=== PATIENT | female | born 1960 | race African-American/Black ===

== ENCOUNTER 2017-07-06 15:24 | Emergency (ER) | payer MEDICARE, OTHER ==
[2017-07-06] MEDS: ACETAMINOPHEN 325 MG TAB PO (17:52)
[2017-07-06 17:57] LABS: URINE BLOOD (Dip) POC Negative (NEGATIVE); URINE GLUCOSE (Dip) POC Negative (NEGATIVE); URINE KETONES (Dip) POC Trace (NEGATIVE); URINE LEUKOCYTE EST (Dip) POC Negative (NEGATIVE); URINE NITRITE (Dip) POC Negative (NEGATIVE); URINE TOTAL PROTEIN POC Negative (NEGATIVE)
== END 2017-07-06 19:25 | disposition home or self-care (01) ==
LOC: FTE 19:25
DX: J06.9 Acute upper respiratory infection, unspecified (principal); I10 Essential (primary) hypertension
CPT/HCPCS: 71045; 72100; 81003; 99284-25

== ENCOUNTER 2018-03-03 11:35 | Emergency (ER) | payer OTHER, MEDICARE ==
[2018-03-03] MEDS: HYDROCODONE/APAP (5/325) TAB PO (13:26)
[2018-03-03] MEDS: ONDANSETRON (ODT) 4 MG TAB ODT (13:26)
== END 2018-03-03 14:36 | disposition home or self-care (01) ==
LOC: FTE 11:35
DX: M54.5 Low back pain (principal); R07.89 Other chest pain; I10 Essential (primary) hypertension
CPT/HCPCS: 71045; 72100; 93005; 99284-25

== ENCOUNTER 2019-03-09 00:05 | Emergency (ER) | payer MEDICARE, OTHER ==
[2019-03-09] MEDS: SOD CHLORIDE 0.9% 1,000 ML IV (02:20)
[2019-03-09] MEDS: DIPHENHYDRAMINE 50 MG INJ IV (03:39)
[2019-03-09] MEDS: METOCLOPRAMIDE 10 MG INJ IV (03:39)
[2019-03-09] MEDS: KETOROLAC 15 MG INJ IV (03:40)
== END 2019-03-09 03:55 | disposition home or self-care (01) ==
LOC: E/R 00:05
DX: R55 Syncope and collapse (principal); B34.9 Viral infection, unspecified; I10 Essential (primary) hypertension
CPT/HCPCS: 36415; 71045; 80048; 80307; 81003; 82962; 84484; 85025; 93005; 96374; 96375; 99285-25